=== PATIENT | male | born 1945 | race Caucasian/White ===

== ENCOUNTER 2017-11-11 13:20 | Outpatient (RCR) | payer BC, MEDICARE | END 2018-02-09 | disposition home or self-care (01) | LOC: ONC 13:20 | PROVIDERS: ATTEND Radiology Radiation Oncology | DX: C61 Malignant neoplasm of prostate (principal) | CPT/HCPCS: 99204 ==

== ENCOUNTER 2018-02-16 13:31 | Outpatient (RCR) | payer BC, MEDICARE ==
[2018-03-24] MEDS ORDERED: SIMV40TA4 PO (13:20)
[2018-03-24] MEDS ORDERED: CALC-250 PO (13:20)
[2018-03-24] MEDS ORDERED: GABA-488 PO (13:20)
[2018-03-24] MEDS ORDERED: FINA5TAB6 PO (13:20)
[2018-03-24] MEDS ORDERED: BICA50TA5 PO (13:20)
[2018-03-24] MEDS ORDERED: ASCO10006 PO (13:20)
== END 2018-02-23 | disposition home or self-care (01) ==
LOC: ONC 13:31
PROVIDERS: ATTEND Radiology Radiation Oncology
DX: C61 Malignant neoplasm of prostate (principal)
CPT/HCPCS: 76873; 77331

== ENCOUNTER 2018-03-31 11:55 | Day surgery (SDC) | payer BC, MEDICARE ==
[~2018-03-31] VITALS: Ht 180.3 cm; Wt 104.8 kg
--- NOTE | 2018-03-31 08:14 | Progress Note-Pre Operative ---
Pre-Operative Progress Note H&P Reviewed The H&P was reviewed, patient examined and no changes noted. Date Seen by Provider: Mar 31, 2018 Time Seen by Provider: 13:00 Date H&P Reviewed: Mar 31, 2018 Time H&P Reviewed: 13:00 Pre-Operative Diagnosis: CA PROSTATE DEVON JURADO MD Mar 31, 2018 8:14 am
--- NOTE | 2018-03-31 08:17 | Discharge Inst-Urology ---
Discharge Inst-Urology Discharge Medications New, Converted, or Re-newed RX: RX on Chart Patient Instructions/Follow Up Plan Please make appointment to been seen in office in 2 weeks. Rest till then Discharge with fole and leg bag day time and large bag night time with instructions Come to office, thursday 9am to dc [place] Showers, no bath Keep bowels soft and moving Increase oral fluids for 48 hours and then as needed. Diet and Activity as tolerated. If questions or concerns contact your physician Or seek help at emergency department. DEVON JRUADO MD Mar 31, 2018 8:17 am
[~2018-03-31 11:55] MED LIST: ASCO10006 PO; BICA50TA5 PO; CALC-250 PO; FINA5TAB6 PO; GABA-488 PO; SIMV40TA4 PO
[2018-03-31 12:00] VITALS: BP 160/83
[2018-03-31] MEDS ORDERED: LACTATED RINGERS 1,000 ML IV PRN (12:10)
[2018-03-31] MEDS ORDERED: LEVOFLOXACIN 500 MG/100 ML IV 100 ML IV ONE (12:15)
[2018-03-31 13:47] LABS: HEMOGLOBIN 15.1 G/DL (13.3-17.7); MEAN PLATELET VOLUME 9.8 FL (7.4-10.4); RED BLOOD COUNT 5.09 10^6/uL (4.35-5.85); RED CELL DISTRIBUTION WIDTH 13.2 % (10.0-14.5); WHITE BLOOD COUNT 5.5 10^3/uL (4.3-11.0)
[2018-03-31] MEDS ORDERED: proPOfol 200 MG/20 ML (DIPRIVAN) VIAL IV ONE (14:58)
[2018-03-31] MEDS ORDERED: fentaNYL INJECTION 100 MCG/2 ML AMP ONE ×2 (14:58→15:47)
[2018-03-31] MEDS ORDERED: LIDOCAINE PF 2% 5 ML (XYLOCAINE) VIAL ONE (14:58)
[2018-03-31] MEDS ORDERED: SEVOFLURANE (ULTANE) 15 ML INHAL SOLN ONE (14:58)
[2018-03-31] MEDS ORDERED: DEXAMETHASONE 10 MG/ML (DECADRON) 1 ML VIAL ONE (14:58)
[2018-03-31] MEDS ORDERED: ONDANSETRON 4 MG/2 ML (SDV) Z0FRAN ONE (14:58)
[2018-03-31] MEDS ORDERED: ONDANSETRON 4 MG/2 ML (SDV) Z0FRAN IVP PRN (16:45)
[2018-03-31] MEDS ORDERED: morphine INJ 10 MG/ML 1ML (SYR OR VIAL) IVP ONE (16:45)
[2018-03-31 17:30] VITALS: BP 163/82
--- NOTE | 2018-03-31 17:43 | Diagnostic Imaging Report ---
CLINICAL INDICATION: Brachytherapy placed by Dr. Lawrence. EXAM: Two limited intraoperative fluoroscopic images of the pelvis for prostatic brachytherapy bead placement. COMPARISON: None. FINDINGS AND IMPRESSION: Fluoroscopy was provided for brachytherapy performed by Dr. Lawrence. Please see surgeon's report for more detail. Fluoroscopy was provided for surgeons and a total of 18.2 seconds and 1.05 mGy was provided. Dictated by: Dictated on workstation # [id number]
[2018-03-31] MEDS ORDERED: TRAM50TA2 PO (17:57)
[2018-03-31] MEDS ORDERED: PHEN-640 PO (17:57)
[2018-03-31] MEDS ORDERED: CIPR-225 PO (17:57)
[2018-03-31 18:00] VITALS: BP 155/79
[2018-03-31 18:30] VITALS: BP 163/82
[2018-03-31 19:15] VITALS: BP 163/82
[2018-03-31] MEDS ORDERED: BACITRACIN OINTMENT 28 GM TUBE TOP SCH (21:00)
== END 2018-03-31 19:35 | disposition home or self-care (01) ==
LOC: SDC 11:55
PROVIDERS: ATTEND Urology
DX: C61 Malignant neoplasm of prostate (principal); F17.220 Nicotine dependence, chewing tobacco, uncomplicated; G62.9 Polyneuropathy, unspecified; Z79.899 Other long term (current) drug therapy
CPT/HCPCS: 36415; 76965; 77290; 77318; 77370; 77470; 77778; 85027

== ENCOUNTER 2018-07-02 14:15 | Outpatient (RCR) | payer BC ==
[~2018-07-02 14:15] MED LIST changes: +CIPR-225 PO; +PHEN-640 PO; +TRAM50TA2 PO
== END 2018-07-27 | disposition home or self-care (01) ==
LOC: ONC 14:15
PROVIDERS: ATTEND Radiology Radiation Oncology
DX: C61 Malignant neoplasm of prostate (principal)
CPT/HCPCS: 77290; 77295; 77334; 77336; 77385

== ENCOUNTER 2018-08-17 14:27 | Outpatient (RCR) | payer BC | END 2018-11-15 | disposition home or self-care (01) | LOC: ONC 14:27 | PROVIDERS: ATTEND Radiology Radiation Oncology | DX: C61 Malignant neoplasm of prostate (principal) | CPT/HCPCS: 99213 ==

== ENCOUNTER 2022-10-08 08:25 | Outpatient (RCR) | payer MEDICARE, OTHER ==
[~2022-10-08 08:25] MED LIST changes: +ASCO100024 PO; -ASCO10006 PO; +SIMV40TA25 PO; -SIMV40TA4 PO; -TRAM50TA2 PO; +TRM50T PO
== END 2022-10-24 | disposition home or self-care (01) ==
LOC: ONC 08:25
PROVIDERS: ATTEND Radiology Radiation Oncology
DX: C61 Malignant neoplasm of prostate (principal)
CPT/HCPCS: 36415; 84153